=== PATIENT | male | born 1970 | race Two or more races ===

== ENCOUNTER 2022-06-06 22:41 | Emergency (ER) | payer OTHER ==
[~2022-06-06] VITALS: Ht 170.2 cm; Wt 95.3 kg
[~2022-06-06 22:41] MED LIST: VASOTEC5 MG
[2022-06-07] MEDS ORDERED: DICY20TA PO (06:00)
[2022-06-07] MEDS ORDERED: PEPCID AC20 MG PO (06:00)
[2022-06-07] MEDS ORDERED: CEFUROXIME500 MG PO (06:00)
== END 2022-06-07 06:41 | disposition home or self-care (01) ==
LOC: ER 22:41
DX: I95.89 Other hypotension (principal); I10 Essential (primary) hypertension; F41.8 Other specified anxiety disorders; K76.0 Fatty (change of) liver, not elsewhere classified

== ENCOUNTER 2022-10-16 10:42 | Emergency (ER) | payer OTHER ==
[~2022-10-16] VITALS: Ht 170.2 cm; Wt 98.0 kg
[~2022-10-16 10:42] MED LIST changes: +CEFUROXIME500 MG PO; +DICY20TA PO; +PEPCID AC20 MG PO
== END 2022-10-16 13:29 | disposition home or self-care (01) ==
LOC: ER 10:42
DX: R55 Syncope and collapse (principal); I10 Essential (primary) hypertension
CPT/HCPCS: 36415; 70450; 93005; 96365; 99284; J3490